=== PATIENT | female | born 1950 ===

== ENCOUNTER 2018-12-11 23:22 | Emergency (ER) | payer BC ==
[2018-12-11 23:23] VITALS: BMI 26.1
[2018-12-12 00:02] VITALS: PULSE 62; RESP 16; TEMP 98.3; O2SAT 98
[2018-12-12 01:43] LABS: BASO % 0.8 % (0.0-2.0); EOS # 0.2 K/uL (0.0-0.7); HEMOGLOBIN 13.2 g/dL (12.0-16.0); LYMPH # 2.4 K/uL (1.0-4.3); MEAN CELL VOLUME 85.1 fl (81.0-99.0); MEAN CORPUSCULAR HEMOGLOBIN 27.8 pg (27.0-31.0); MEAN CORPUSCULAR HGB CONC 32.6 g/dL (33.0-37.0); MEAN PLATELET VOLUME 8.5 fl (7.2-11.7); MONO # 1.3 K/uL (0.0-0.8); NEUT # 2.4 K/uL (1.8-7.0); NRBC % 0.1 % (0.0-0.0); PLATELET COUNT 252 K/uL (130-400); RBC 4.75 Mil/uL (3.80-5.20); RED CELL DISTRIBUTION WIDTH 12.8 % (11.5-14.5); WHITE BLOOD COUNT 6.4 K/uL (4.8-10.8)
[2018-12-12 01:47] LABS: ALB/GLOB RATIO 1.3 (1.0-2.1); ALBUMIN 4.6 g/dL (3.5-5.0); ALT/SGPT 45 U/L (9-52); AST/SGOT 36 U/L (14-36); BLOOD UREA NITROGEN 15 mg/dl (7-17); CALCIUM 9.7 mg/dL (8.4-10.2); GFR NON-AFRICAN AMERICAN > 60
[2018-12-12 01:50] VITALS: BP 147/79
[2018-12-12 01:50] LABS: EOS % 3.3 % (0.0-4.0); MONO % 20.6 % (0.0-10.0); NEUT % 37.3 % (50.0-75.0)
[2018-12-12 02:50] LABS: BANDS 1 % (0-2); BASOPHIL 1 % (0-2); EOSINOPHIL 2 % (0-7); LYMPHOCYTE 36 % (20-50); MONOCYTE 21 % (0-10); NEUTROPHIL 36 % (42-75); PLATELET ESTIMATE NORMAL (NORMAL); REACTIVE LYMPHOCYTES 3 % (0-0); TOTAL CELLS COUNTED 100
--- NOTE | 2018-12-12 03:17 | ED PDOC ---
HPI: General Adult Time Seen by Provider: 12/12/18 00:02 Chief Complaint (Nursing): Allergic Reaction Chief Complaint (Provider): Allergic Reaction History Per: Patient History/Exam Limitations: no limitations Onset/Duration Of Symptoms: Other (2 weeks) Additional Complaint(s): 67 y/o female presents to the ED complaining of rash for the past 2 weeks. Patient states her hypertensive medication was changed by her PMD due to thought that she may be having reaction. Patient reports she still have the symptoms. She states she went [facility] yesterday who started her on topical steroids and Zyrtec. She reports she now has a rash on her left upper extremity which is described as pruritic. Patient denies fever, cough, chest pain, or any shortness of breath. Past Medical History Reviewed: Historical Data, Nursing Documentation, Vital Signs Vital Signs: Last Vital Signs Temp 98.3 F 12/11/18 23:56 Pulse 62 12/11/18 23:56 Resp 16 12/11/18 23:56 BP 147/79 12/12/18 01:50 Pulse Ox 98 12/11/18 23:56 Primary Care Physician: Luciano Penn MD - Medical History PMH: HTN - Surgical History Surgical History: Appendectomy, Cholecystectomy - Family History Family History: States: No Known Family Hx - Immunization History Hx Tetanus Toxoid Vaccination: No Hx Influenza Vaccination: No Hx Pneumococcal Vaccination: No - Home Medications Home Medications: Ambulatory Orders Medication Instructions Recorded Ondansetron [Zofran] 4 mg PO Q8H #9 tab 09/13/15 Methylprednisolone [Medrol Dose 4 mg PO DAILY #21 mg 08/13/18 Pack (21 tabs)] Methylprednisolone [Medrol Dosepak] 4 mg PO ASDIR #1 pkg 12/12/18 - Allergies Allergies/Adverse Reactions: Allergies Allergy/AdvReac Type Severity Reaction Status Date / Time No Known Allergies Allergy Verified 08/26/18 10:30 Review of Systems Constitutional: Negative for: Fever Cardiovascular: Negative for: Chest Pain Respiratory: Negative for: Cough, Shortness of Breath Skin: Positive for: Rash (luq) Physical Exam - Reviewed Nursing Documentation Reviewed: Yes Vital Signs Reviewed: Yes - Physical Exam Appears: Positive for: Well, Non-toxic, No Acute Distress Head Exam: Positive for: ATRAUMATIC, NORMOCEPHALIC Skin: Positive for: Normal Color, Warm, Dry, Rash (8X4cm oval shaped erythematous urticarial lesion. no induration/fluctuance. ) Eye Exam: Positive for: EOMI, Normal appearance, PERRL ENT: Positive for: Normal ENT Inspection Neck: Positive for: Normal, Painless ROM, Supple Cardiovascular/Chest: Positive for: Regular Rate, Rhythm Respiratory: Positive for: Normal Breath Sounds. Negative for: Wheezing Gastrointestinal/Abdominal: Positive for: Normal Exam, Soft. Negative for: Tenderness Back: Positive for: Normal Inspection. Negative for: L CVA Tenderness, R CVA Tenderness Extremity: Positive for: Normal ROM Neurological/Psych: Positive for: Awake, Alert, Normal Tone, Oriented (x3). Negative for: Motor/Sensory Deficits - Laboratory Results Result Diagrams: 12/12/18 01:12/12/18 01:29 Lab Results: Total Bilirubin 0.4 mg/dl (0.2-1.3) 12/12/18 01: AST 36 U/L (14-36) 12/12/18 01: ALT 45 U/L (9-52) 12/12/18 01: Alkaline Phosphatase 84 U/L (38-126) 12/12/18 01: Total Protein 7.9 G/DL (6.3-8.2) 12/12/18 01: Albumin 4.6 g/dL (3.5-5.0) 12/12/18 01: Globulin 3.4 gm/dL (2.2-3.9) 12/12/18 01: Albumin/Globulin Ratio 1.3 (1.0-2.1) 12/12/18 01:29 - ECG O2 Sat by Pulse Oximetry: 98 Medical Decision Making Medical Decision Making: Time: 48 Initial Impression: 67 y/o female with focal urticaria Initial Plan: -CMP -CBC -Pepcid -SOLU- Medrol -IV Insertion saline lock 0237: Pt report mild improvement of symptoms. No clinically abnormality. Stable for discharge. Patient will follow up with [facility]. Scribe Attestation: Documented by Shelly Gutierrez, acting as a scribe for Lenin Sexton. Provider Scribe Attestation: All medical record entries made by the Scribe were at my direction and personally dictated by me. I have reviewed the chart and agree that the record accurately reflects my personal performance of the history, physical exam, medical decision making, and the department course for this patient. I have also personally directed, reviewed, and agree with the discharge instructions and disposition. Disposition - Clinical Impression Clinical Impression: Allergic reaction, Urticaria - Disposition Referrals: Luciano Penn MD [Primary Care Provider] - Disposition Time: 02:30 Condition: STABLE Prescriptions: Methylprednisolone [Medrol Dosepak] 4 mg PO ASDIR #1 pkg Instructions: Hives Forms: [employer] [facility] (Yoruba), [facility] ED School/Work Excuse Print Language: [place]
== END 2018-12-12 02:30 | disposition home or self-care (01) ==
LOC: H.ER 23:22
DX: T78.40XA Allergy, unspecified, initial encounter (principal); L50.0 Allergic urticaria; I10 Essential (primary) hypertension
CPT/HCPCS: 80053; 85025; 96374; 99283; J2930